=== PATIENT | female | born 1980 ===

== ENCOUNTER 2017-12-08 17:18 | Emergency (ER) | payer OTHER ==
[2017-12-08 17:27] VITALS: RESP 16
--- NOTE | 2017-12-08 18:19 | ED PDOC ---
HPI: Chest Pain Time Seen by Provider: 12/08/17 18:12 Chief Complaint (Nursing): Chest Pain Chief Complaint (Provider): Chest pain History Per: Patient History/Exam Limitations: no limitations Onset/Duration Of Symptoms: Days (1 week) Additional Complaint(s): Pt. with left chest and breast area pain. Constant. 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 Feels might be due to that. No dyspnea , weakness, numbness, tingles. No headaches. No back pain, abd pain. No hormone tx, long distance travel, or leg pain. Past Medical History Reviewed: Nursing Documentation, Vital Signs Vital Signs: Last Vital Signs Temp 98.3 F 12/08/17 17:24 Pulse 71 12/08/17 17:24 Resp 16 12/08/17 17:24 BP 146/89 12/08/17 17:24 Pulse Ox 98 12/08/17 18:36 - Medical History PMH: No Chronic Diseases - Surgical History Surgical History: No Surg Hx - Family History Family History: States: Unknown Family Hx - Living Arrangements Living Arrangements: With Family - Social History Current smoker - smoking cessation education provided: No Alcohol: None Drugs: Denies - Home Medications Home Medications: Ambulatory Orders Medication Instructions Recorded Cyclobenzaprine HCl [Flexeril] 10 mg PO Q8 #20 tab 06/27/14 Naproxen [Naprosyn] 500 mg PO BID #20 tab 06/27/14 - Allergies Allergies/Adverse Reactions: Allergies Allergy/AdvReac Type Severity Reaction Status Date / Time No Known Allergies Allergy Verified 12/08/17 17:24 JERMAN Risk Score for UA/NSTEMI - JERMAN Risk Score Age > 64: NO 3 or more CAD Risk Factors: NO Known CAD (Stenosis greater than 50%): NO Aspirin use in past 7 days: NO Severe Angina: NO EKG ST changes greater than 0.5mm: NO Positive Cardiac Marker: NO JERMAN Score: 0 Risk %: 5% Review of Systems ROS Statement: Except As Marked, All Systems Reviewed And Found Negative Cardiovascular: Positive for: Chest Pain Physical Exam - Reviewed Nursing Documentation Reviewed: Yes Vital Signs Reviewed: Yes - Physical Exam Appears: Positive for: Non-toxic, No Acute Distress Head Exam: Positive for: ATRAUMATIC, NORMAL INSPECTION, NORMOCEPHALIC Skin: Positive for: Normal Color, Warm, DRY Eye Exam: Positive for: EOMI, Normal appearance, PERRL ENT: Positive for: Normal ENT Inspection Neck: Positive for: Normal, Painless ROM Cardiovascular/Chest: Positive for: Regular Rate, Rhythm. Negative for: Chest Non Tender (L chest lateral mild tender on touch; no erythema or dc. L breast with no induration, erythema, or dc; no nipple dc. supervised with Nurse Ct Feng) Respiratory: Positive for: CNT, Normal Breath Sounds Gastrointestinal/Abdominal: Positive for: Normal Exam, Soft. Negative for: Tenderness Back: Positive for: Normal Inspection. Negative for: L CVA Tenderness, R CVA Tenderness Extremity: Positive for: Normal ROM. Negative for: Tenderness, Pedal Edema Neurologic/Psych: Positive for: Alert, Oriented - Laboratory Results Result Diagrams: 12/08/17 18:42 - ECG O2 Sat by Pulse Oximetry: 98 - Progress ED Course And Treament: 1853: Dr. Orellana to fu on labs and imaging. Disposition - Clinical Impression Clinical Impression: Chest pain - Patient ED Disposition Is Patient to be Admitted: Transfer of Care - Disposition Disposition Time: 18:54 Condition: FAIR Patient Signed Over To: Willi Orellana
[2017-12-08] MEDS ORDERED: Sodium Chloride 0.9% 1,000 ML IV STA (18:30)
[2017-12-08 18:49] LABS: BASO % 0.6 % (0.0-2.0); EOS # 0.1 K/uL (0.0-0.7); EOS % 1.5 % (0.0-4.0); HEMOGLOBIN 12.1 g/dL (12.0-16.0); LYMPH # 1.8 K/uL (1.0-4.3); LYMPH % 25.7 % (20.0-40.0); MEAN CELL VOLUME 85.6 fl (81.0-99.0); MEAN CORPUSCULAR HEMOGLOBIN 28.2 pg (27.0-31.0); MEAN PLATELET VOLUME 8.7 fl (7.2-11.7); MONO # 0.4 K/uL (0.0-0.8); MONO % 5.9 % (0.0-10.0); NEUT # 4.7 K/uL (1.8-7.0); NEUT % 66.3 % (50.0-75.0); NRBC % 0.1 % (0.0-0.0); RBC 4.28 Mil/uL (3.80-5.20); RED CELL DISTRIBUTION WIDTH 14.6 % (11.5-14.5); WHITE BLOOD COUNT 7.1 K/uL (4.8-10.8)
[2017-12-08 19:01] LABS: ALB/GLOB RATIO 1.1 (1.0-2.1); ALBUMIN 4.3 g/dL (3.5-5.0); ALT/SGPT 36 U/L (9-52); AST/SGOT 25 U/L (14-36); BLOOD UREA NITROGEN 19 mg/dl (7-17); CALCIUM 9.4 mg/dL (8.4-10.2); GFR AFRICAN-AMERICAN > 60; GFR NON-AFRICAN AMERICAN > 60
--- NOTE | 2017-12-08 19:35 | ED PDOC ---
- Laboratory Results Result Diagrams: 12/08/17 18:42 12/08/17 18:42 - ECG O2 Sat by Pulse Oximetry: 98 Medical Decision Making Medical Decision Makin:30 Transfer of care to Dr. Orellana pending labs and re-evaluation. 20:38 Patient states she feels better. Labs reviewed with no clinical significant abnormalities found. Stable upon discharge. Atypical chest pain. Advised to take ibuprofen. Follow up at [facility]. Scribe Attestation: Documented by Anya Austin acting as a scribe for Willi Orellana MD. Scribe Attestation: All medical record entries made by the Scribe were at my direction and personally dictated by me. I have reviewed the chart and agree that the record accurately reflects my personal performance of the history, physical exam, medical decision making, and the department course for this patient. I have also personally directed, reviewed, and agree with the discharge instructions and disposition. Disposition - Clinical Impression Clinical Impression: Chest pain, Atypical chest pain - POA Present On Arrival: None - Disposition Disposition: Routine/Home Disposition Time: 20:30 Condition: STABLE Instructions: Chest Pain That Is Not Caused by the Heart (DC) Forms: [employer] (Polish) Print Language: [place]
[2017-12-08 20:01] VITALS: BP 115/75; PULSE 60; TEMP 98
[2017-12-08 21:13] VITALS: O2SAT 98
--- NOTE | 2017-12-09 08:59 | RAD ---
HISTORY: chest pain COMPARISON: 08/22/2011 TECHNIQUE: Chest PA and lateral FINDINGS: LUNGS: No active pulmonary disease. PLEURA: No significant pleural effusion identified. No pneumothorax apparent. CARDIOVASCULAR: Normal. OSSEOUS STRUCTURES: No significant abnormalities. VISUALIZED UPPER ABDOMEN: Normal. OTHER FINDINGS: None. IMPRESSION: No active disease.
--- NOTE | 2017-12-09 09:00 | CARD ---
APPROVED REPORT EKG Measurement Heart [id number] <Conclusion> Normal sinus rhythm Normal ECG
== END 2017-12-08 20:30 | disposition home or self-care (01) ==
LOC: H.ER 17:18
DX: R07.89 Other chest pain (principal)
CPT/HCPCS: 71046; 80053; 81025; 84484; 85025; 93005; 96361; 96374; 99284; J1885; J7040